=== PATIENT | female | born 1965 | race Caucasian/White ===

== ENCOUNTER 2023-03-28 22:01 | Emergency (ER) | payer OTHER ==
[2023-03-28 23:48] VITALS: TEMP 99.6
[2023-03-29] MEDS ORDERED: KETOROLAC 15 MG/ML 1 ML VIAL IM STA (00:10)
--- NOTE | 2023-03-29 00:10 | ED ---
General Adult HPI - General Chief complaint: Extremity Problem,Nontraumatic Stated complaint: Right Knee Injury Time Seen by Provider: 03/28/23 23:56 Source: patient, RN notes reviewed Mode of arrival: wheelchair - History of Present Illness Initial comments: 57-year-old female presents to the emergency department with a chief complaint of right knee pain. Patient reports worsening right knee pain after she was getting up from the wall and heard a pop to her right knee. She is expressing it painful to straighten out her right leg. She has not tried anything for his symptoms. Denies any numbness, tingling, weakness in the extremity. - Related Data Allergies Allergy/AdvReac Type Severity Reaction Status Date / Time No Known Allergies Allergy Verified 03/28/23 23:48 Review of Systems ROS Statement: Those systems with pertinent positive or pertinent negative responses have been documented in the HPI. ROS Other: All systems not noted in ROS Statement are negative. Past Medical History Past Medical History: No Reported History Additional Past Surgical History / Comment(s): prostate removal from cancer Past Psychological History: No Psychological Hx Reported Smoking Status: Current every day smoker Past Alcohol Use History: None Reported Past Drug Use History: None Reported General Exam - General Exam Comments Initial Comments: General: Alert, in no acute distress Head: atraumatic normocephalic. Eyes PERRL, EOMI intact, mucous membranes moist Respiratory: Lungs clear to auscultation bilaterally Cardiovascular: Heart rate regular rate and rhythm Abdominal: Soft without guarding or rebound Extremities: Normal inspection with full range of motion and normal capillary refill, 2/PT pulses 2+ bilaterally. Limited range of motion of right knee secondary to pain. No marked erythema or edema. Neuroogic: alert and oriented 3, CN II-XII intact, able to ambulate with steady gait Skin: warm dry and intact with normal color Course Vital Signs 03/28/23 23:43 Temperature 99.6 F Pulse Rate 86 Respiratory 16 Rate Blood Pressure 120/74 O2 Sat by Pulse 97 Oximetry Medical Decision Making - Medical Decision Making Was pt. sent in by a medical professional or institution ([facility] Newell, REVERSER, urgent care, hospital, or fdc...) When possible be specific @ -[No] Did you speak to anyone other than the patient for history (EMS, parent, family, police, friend...)? What history was obtained from this source @ -[No] Did you review nursing and triage notes (agree or disagree)? Why? @ -[I reviewed and agree with nursing and triage notes] Were old charts reviewed (outside hosp., previous admission, EMS record, old EKG, old radiological studies, urgent care reports/EKG's, fdc records)? Report findings @ -[No old charts were reviewed] Differential Diagnosis (chest pain, altered mental status, abdominal pain women, abdominal pain men, vaginal bleeding, weakness, fever, dyspnea, syncope, headache, dizziness, GI bleed, back pain, seizure, CVA, palpatations, mental health, musculoskeletal)? @ -[not applicable] EKG interpreted by me (3pts min.). @ -[As above] X-rays interpreted by me (1pt min.). @ -Negative for any evidence of fracture or dislocation CT interpreted by me (1pt min.). @ -[None done] U/S interpreted by me (1pt. min.). @ -[None done] What testing was considered but not performed or refused? (CT, X-rays, U/S, labs)? Why? @ -[None] What meds were considered but not given or refused? Why? @ -[None] Did you discuss the management of the patient with other professionals (professionals i.e. , PA, REVERSER, lab, RT, psych nurse, high school social studies tutor, mobile game engineer, teacher, radiological defense officer, correctional casework specialist)? Give summary @ -[No] Was smoking cessation discussed for >3mins.? @ -[No] Was critical care preformed (if so, how long)? @ -[No] Were there social determinants of health that impacted care today? How? (Homelessness, low income, unemployed, alcoholism, drug addiction, transportation, low edu. Level, literacy, decrease access to med. care, shelter, rehab)? @ -[No] Was there de-escalation of care discussed even if they declined (Discuss DNR or withdrawal of care, Hospice)? DNR status @ -[No] What co-morbidities impacted this encounter? (DM, HTN, Smoking, COPD, CAD, Cancer, CVA, ARF, Chemo, Hep., AIDS, mental health diagnosis, sleep apnea, morbid obesity)? @ -[None] Was patient admitted / discharged? Hospital course, mention meds given and route, prescriptions, significant lab abnormalities, going to OR and other pertinent info. @ -Discharged. 57-year-old female who presents the emergency department with right knee pain. Patient had a thorough history and physical exam performed on the ED. Physical exam is essentially unremarkable heart rate regular rate and rhythm, lungs clear to auscultation bilaterally, abdomen soft and non-tender. Right lower extremity with limited range of motion, 5 out of 5 strength, 2+ DP/PT pulses bilaterally. Patient able to move the extremity while distracted. Patient had imaging performed which was negative. I discussed the results in detail with the patient verbalized understanding and all questions were addressed. Return precautions were discussed at length. Patient discharged in stable condition. Case discussed with JOSE Snow who agrees with plan of care. Undiagnosed new problem with uncertain prognosis? @ -[No] Drug Therapy requiring intensive monitoring for toxicity (Heparin, Nitro, Insulin, Cardizem)? @ -[No] Were any procedures done? @ -[No] Diagnosis/symptom? @ -internal derangement of right knee Acute, or Chronic, or Acute on Chronic? @ -acute Uncomplicated (without systemic symptoms) or Complicated (systemic symptoms)? @ -uncomplicated Side effects of treatment? @ -[No] Exacerbation, Progression, or Severe Exacerbation? @ -[No] Poses a threat to life or bodily function? How? (Chest pain, [place], [place], pneumonia, PE, COPD, DKA, ARF, appy, cholecystitis, CVA, Diverticulitis, Homicidal, Suicidal, threat to staff... and all critical care pts) @ -low likelihood Disposition Clinical Impression: Right knee pain Disposition: HOME SELF-CARE Condition: Stable Instructions (If sedation given, give patient instructions): Knee Pain (ED) Additional Instructions: Please return to the nearest emergency department if symptoms worsen or persist Is patient prescribed a controlled substance at d/c from ED?: No Referrals: Nonstaff,Physician [REFERRING] - 1-2 days Asa Holm MD [Medical Doctor] - 1-2 days Time of Disposition: 02:47
[2023-03-29] MEDS ORDERED: ACET/COD 300 MG/30 MG STARTER PACK 6 TAB BTL PO STA (02:48)
--- NOTE | 2023-03-29 02:52 | XR ---
EXAM: XR Right Knee, 3 Views CLINICAL HISTORY: ITS.REASON XR Reason: right knee pain TECHNIQUE: Three views of the right knee. COMPARISON: No previous studies. FINDINGS: Bones/joints: Small right knee joint effusion. Mild osteoarthritic changes. Normal anatomic alignment. No acute fracture or dislocation. Soft tissues: Unremarkable. IMPRESSION: 1. No acute fracture or dislocation. 2. Small right knee joint effusion. 3. MRI imaging will provide additional information, as deemed clinically necessary.
[2023-03-29] MEDS ORDERED: Acetaminophen-Codeine 300-30mg TAB PO STA (03:08)
[2023-03-29 03:54] VITALS: BP 133/72; PULSE 77; RESP 20
== END 2023-03-29 04:00 | disposition home or self-care (01) ==
LOC: EC 22:01
DX: M25.561 Pain in right knee (principal); F17.200 Nicotine dependence, unspecified, uncomplicated; X50.9XXA Other and unspecified overexertion or strenuous movements or postures, initial encounter
CPT/HCPCS: 99283 ×2; 96372 ×2; 73562; J1885